=== PATIENT | male | born 1985 ===

== ENCOUNTER 2016-08-10 13:13 | Emergency (ER) | payer OTHER ==
[2016-08-10 13:34] VITALS: BMI 36.6
[2016-08-10 13:38] VITALS: O2SAT 99
--- NOTE | 2016-08-10 15:25 | RAD ---
PROCEDURE: Left Knee Radiographs. HISTORY: Pain. COMPARISON: None. FINDINGS: BONES: Bone alignment and mineralization are normal. No acute fracture. JOINTS: Normal. No osteoarthritis. JOINT EFFUSION: None. OTHER FINDINGS: None. IMPRESSION: No acute fracture or dislocation.
--- NOTE | 2016-08-10 16:07 | C.PDOC ---
Time Seen by Provider: 08/10/16 14:16 Chief Complaint (Nursing): Lower Extremity Problem/Injury Past Medical History Vital Signs: Last Vital Signs Temp 98.5 F 08/10/16 13:30 Pulse 92 H 08/10/16 13:30 Resp 18 08/10/16 13:30 BP 129/76 08/10/16 13:30 Pulse Ox 99 08/10/16 13:30 - Social History Hx Alcohol Use: No Hx Substance Use: No - Immunization History Hx Tetanus Toxoid Vaccination: Yes Hx Influenza Vaccination: Yes Hx Pneumococcal Vaccination: No ED Course And Treatment O2 Sat by Pulse Oximetry: 99 Disposition Counseled Patient/Family Regarding: Studies Performed, Diagnosis, Need For Followup, Rx Given - Disposition Referrals: Clinic,Med Surg [Primary Care Provider] - Wayne Posadas III, MD [Staff Provider] - Disposition: HOME/ ROUTINE Disposition Time: 16:07 Condition: STABLE Additional Instructions: Wear misael bandage for support. Apply cold compresses to knee several times a day to help with swelling. Take ibupforen for pain. If pain persists after another few days. follow up with Dr Posadas, orthopedics. Prescriptions: Ibuprofen [Motrin] 600 mg PO TID #30 tab Instructions: Knee Pain (ED) Forms: General Discharge Instructions - Clinical Impression Clinical Impression: Injury of knee, left
--- NOTE | 2016-08-10 16:18 | C.PDOC ---
History Of Present Illness 30-year-old male, presents to the emergency department with complaints of left knee pain. Patient states he sustained an injury to his left knee after a trip and fall two days ago down a few steps due to a mis-step. no other injury from fall. Pain is persistent in nature, non-radiating and worse with extension of left leg. Associated symptoms include mild swelling. Denies numbness/weakness, nausea/vomiting or fevers. No other complaints at this time. Time Seen by Provider: 08/10/16 14:16 Chief Complaint (Nursing): Lower Extremity Problem/Injury History Per: Patient History/Exam Limitations: no limitations Onset/Duration Of Symptoms: Days Current Symptoms Are (Timing): Still Present Severity: Moderate Past Medical History Reviewed: Historical Data, Nursing Documentation, Vital Signs Vital Signs: Last Vital Signs Temp 98.1 F 08/10/16 16:46 Pulse 74 08/10/16 16:46 Resp 20 08/10/16 16:46 BP 135/87 08/10/16 16:46 Pulse Ox 99 08/10/16 17:27 Family History: States: No Known Family Hx - Social History Hx Alcohol Use: No Hx Substance Use: No - Immunization History Hx Tetanus Toxoid Vaccination: Yes Hx Influenza Vaccination: Yes Hx Pneumococcal Vaccination: No Review Of Systems Gastrointestinal: Negative for: Nausea, Vomiting Musculoskeletal: Positive for: Leg Pain Neurological: Negative for: Weakness, Numbness Physical Exam - Physical Exam Appears: Non-toxic, No Acute Distress Skin: Warm, Dry, No Rash Head: Atraumatic, Normacephalic Eye(s): bilateral: Normal Inspection Neck: Normal ROM, No Midline Cervical Tenderness Extremity: Tenderness, No Pedal Edema, Capillary Refill (<2 seconds), No Deformity, Swelling, Other (Left lower ext: Pain worse w/ extension of leg. Pt ambulatory with limp. healing abrasion on knee. tender to lateral patella area with mild swelling. ) Neurological/Psych: Oriented x3, Normal Speech ED Course And Treatment O2 Sat by Pulse Oximetry: 99 - Other Rad left knee X-Ray: Interpreted by Me, Viewed By Me Interpretation: no fx noted Disposition - Disposition Referrals: Wayne Posadas III, MD [Staff Provider] - Clinic,Med Surg [Primary Care Provider] - Disposition: HOME/ ROUTINE Disposition Time: 16:07 Condition: STABLE Additional Instructions: Wear misael bandage for support. Apply cold compresses to knee several times a day to help with swelling. Take ibupforen for pain. If pain persists after another few days. follow up with Dr Posadas, orthopedics. Prescriptions: Ibuprofen [Motrin] 600 mg PO TID #30 tab Instructions: Knee Pain (ED) Forms: General Discharge Instructions Print Language: ESTONIAN - Clinical Impression Clinical Impression: Injury of knee, left - Scribe Statement The provider has reviewed the documentation as recorded by the Scribe (Lorne Washington) All medical record entries made by the Scribe were at my direction and personally dictated by me. I have reviewed the chart and agree that the record accurately reflects my personal performance of the history, physical exam, medical decision making, and the department course for this patient. I have also personally directed, reviewed, and agree with the discharge instructions and disposition.
[2016-08-10 16:47] VITALS: BP 135/87; PULSE 74; RESP 20; TEMP 98.1
== END 2016-08-10 16:47 | disposition home or self-care (01) ==
LOC: SUPCPDRO 13:13 → C.ER 13:13
DX: S80.212A Abrasion, left knee, initial encounter (principal); W10.9XXA Fall (on) (from) unspecified stairs and steps, initial encounter

== ENCOUNTER 2018-06-18 17:46 | Emergency (ER) | payer SELFPAY ==
[2018-06-18 18:06] VITALS: BMI 32.5
[2018-06-18 18:10] VITALS: RESP 18; TEMP 98.7
[2018-06-18] MEDS ORDERED: Sodium Chloride 0.9% 1,000 ML IV STA (19:15)
--- NOTE | 2018-06-18 19:18 | C.PDOC ---
History Of Present Illness 32-year-old male presents to the ED for evaluation of elevated blood pressure which began 3 days ago. Patient states he began feeling a tingling sensation to the right side of his face while at work 3 days ago. He then checked his blood pressure and found that it was elevated. Patient states the tingling sensation self-resolved, but still has a headache and feels tired. Patient reports family history of hypertension (father). He denies vision change, dizziness, nausea, vomiting, extremity numbness/weakness. Time Seen by Provider: 06/18/18 19:10 Chief Complaint (Nursing): High Blood Pressure History Per: Patient History/Exam Limitations: no limitations Onset/Duration Of Symptoms: Days (3) Current Symptoms Are (Timing): Still Present Associated Symptoms: Headache. denies: Dizziness, Blurred Vision, Focal Weakness Additional History Per: Patient Past Medical History Reviewed: Historical Data, Nursing Documentation, Vital Signs Vital Signs: Last Vital Signs Temp 98.7 F 06/18/18 18:06 Pulse 99 H 06/18/18 18:06 Resp 18 06/18/18 18:06 BP 138/85 06/18/18 18:06 Pulse Ox 102 H 06/18/18 18:06 - Medical History PMH: No Chronic Diseases Surgical History: No Surg Hx Family History: States: Unknown Family Hx - Social History Hx Alcohol Use: No Hx Substance Use: No - Immunization History Hx Tetanus Toxoid Vaccination: Yes Hx Influenza Vaccination: Yes Hx Pneumococcal Vaccination: No Review Of Systems Eyes: Negative for: Vision Change Gastrointestinal: Negative for: Nausea, Vomiting Neurological: Positive for: Headache. Negative for: Weakness, Numbness, Dizziness Physical Exam - Physical Exam Appears: Non-toxic, No Acute Distress Skin: Normal Color, Warm, Dry Head: Atraumatic, Normacephalic Eye(s): bilateral: Normal Inspection, PERRL, EOMI Ear(s): Bilateral: Normal Nose: Normal, No Discharge Oral Mucosa: Moist Throat: Normal, No Erythema, No Exudate Neck: Supple Chest: Symmetrical, No Deformity, No Tenderness Cardiovascular: Rhythm Regular, No Murmur Respiratory: Normal Breath Sounds, No Rales, No Rhonchi, No Wheezing Extremity: Normal ROM, Capillary Refill (less than 2 seconds ) Neurological/Psych: Oriented x3, Normal Speech, Normal Cognition Gait: Steady ED Course And Treatment - Laboratory Results Result Diagrams: 06/18/18 19:30 06/18/18 19:30 O2 Sat by Pulse Oximetry: 102 (on RA ) Pulse Ox Interpretation: Normal - CT Scan/US CT Head Other Rad Studies (CT/US): Read By Radiologist, Radiology Report Reviewed CT/US Interpretation: EXAM: CT Head without Intravenous Contrast. CLINICAL HISTORY: High bp headache. TECHNIQUE: Axial computed tomography images of the head/brain without intravenous contrast. COMPARISON: None provided. FINDINGS: BRAIN. No acute intraparenchymal hemorrhage. No mass lesion. No CT evidence for acute territorial infarct. No midline shift or extra-axial collections. VENTRICLES: No hydrocephalus. ORBITS: The orbits are unremarkable. SINUSES AND MASTOIDS: The paranasal sinuses and mastoid air cells are clear. BONES: No fracture. SOFT TISSUES: Unremarkable. IMPRESSION: No acute intracranial abnormality. Progress Note: Bloodwork, urinalysis and CT Head ordered and reviewed. IV Fluids given. Disposition - Disposition Referrals: [facility] [Outside] Disposition: HOME/ ROUTINE Disposition Time: 21:02 Condition: IMPROVED Additional Instructions: Follow up within 1-2 days. Return to ED if feel worse. 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 - Scribe Statement The provider has reviewed the documentation as recorded by the Scribe (Megan Gates) All medical record entries made by the Scribe were at my direction and personally dictated by me. I have reviewed the chart and agree that the record accurately reflects my personal performance of the history, physical exam, medical decision making, and the department course for this patient. I have also personally directed, reviewed, and agree with the discharge instructions and disposition.
[2018-06-18 19:36] LABS: BASO # 0.1 K/uL (0.0-0.2); BASO % 0.7 % (0.0-2.0); EOS # 0.1 K/uL (0.0-0.7); EOS % 0.5 % (0.0-4.0); HEMOGLOBIN 15.3 g/dL (12.0-18.0); LYMPH # 2.2 K/uL (1.0-4.3); LYMPH % 19.7 % (20.0-40.0); MEAN CELL VOLUME 85.5 fL (80.0-94.0); MEAN CORPUSCULAR HEMOGLOBIN 28.5 pg (27.0-31.0); MEAN CORPUSCULAR HGB CONC 33.3 g/dL (33.0-37.0); MEAN PLATELET VOLUME 6.7 fL (7.2-11.7); MONO % 8.5 % (0.0-10.0); NEUT # 7.9 K/uL (1.8-7.0); NEUT % 70.6 % (50.0-75.0); NRBC % 0.2 % (0.0-2.0); RBC 5.37 Mil/uL (4.40-5.90); RED CELL DISTRIBUTION WIDTH 13.3 % (11.5-14.5); WHITE BLOOD COUNT 11.2 K/uL (4.8-10.8)
[2018-06-18 19:46] LABS: SQUAMOUS EPITHIAL < 1 /hpf (0-5); URINE BACTERIA RARE (<OCC); URINE BILIRUBIN NEGATIVE (NEGATIVE); URINE BLOOD NEGATIVE (NEGATIVE); URINE CLARITY Clear (Clear); URINE COLOR Yellow (YELLOW); URINE GLUCOSE (UA) NORMAL (Normal); URINE LEUKOCYTE ESTERASE NEG Leu/uL (Negative); URINE PROTEIN NEGATIVE (NEGATIVE); URINE UROBILINOGEN NORMAL mg/dL (0.2-1.0)
[2018-06-18 19:53] LABS: ALB/GLOB RATIO 1.2 (1.0-2.1); ALBUMIN 4.7 g/dL (3.5-5.0); ALT/SGPT 30 U/L (21-72); AST/SGOT 25 U/L (17-59); BLOOD UREA NITROGEN 12 mg/dL (9-20); CALCIUM 9.9 mg/dl (8.6-10.4); GFR NON-AFRICAN AMERICAN > 60
[2018-06-18 20:32] VITALS: BP 123/82; PULSE 72
[2018-06-18 21:05] VITALS: O2SAT 102
--- NOTE | 2018-06-19 09:56 | CT ---
Date of service: 06/18/2018 PROCEDURE: CT HEAD WITHOUT CONTRAST. HISTORY: Headache COMPARISON: None available. TECHNIQUE: Axial computed tomography images were obtained through the head/brain without intravenous contrast. Radiation dose: Total exam DLP = 1101.32 mGy-cm. This CT exam was performed using one or more of the following dose reduction techniques: Automated exposure control, adjustment of the mA and/or kV according to patient size, and/or use of iterative reconstruction technique. FINDINGS: HEMORRHAGE: No intracranial hemorrhage. BRAIN: No mass effect or edema. No atrophy or chronic microvascular ischemic changes. VENTRICLES: Unremarkable. No hydrocephalus. CALVARIUM: Unremarkable. PARANASAL SINUSES: Unremarkable as visualized. No significant inflammatory changes. MASTOID AIR CELLS: Unremarkable as visualized. No inflammatory changes. OTHER FINDINGS: None. IMPRESSION: Normal CT of the Head. Preliminary report provided by overnight radiology service.
--- NOTE | 2018-06-21 13:45 | CARD ---
APPROVED REPORT Date of service: 06/18/2018 EKG Measurement Heart [id number] <Conclusion> Normal sinus rhythm Normal ECG
== END 2018-06-18 21:08 | disposition home or self-care (01) ==
LOC: C.ER 17:46
DX: R51 Headache (principal)
CPT/HCPCS: 70450; 80053; 81001; 82948; 85025; 93005; 96360; 99285; J7030